=== PATIENT | female | born 1955 | race Two or more races ===

== ENCOUNTER 2019-01-13 10:21 | Emergency (ER) | payer OTHER ==
[~2019-01-13] VITALS: Ht 154.9 cm; Wt 102.1 kg
[2019-01-13 12:07] VITALS: BP 161/95
[2019-01-13] MEDS ORDERED: KETOROLAC TROMETH 60MG/2ML VIAL IM ONE (12:30)
== END 2019-01-13 13:33 | disposition home or self-care (01) ==
LOC: ER 10:21
DX: M25.561 Pain in right knee (principal); M25.562 Pain in left knee; E11.9 Type 2 diabetes mellitus without complications; Z76.0 Encounter for issue of repeat prescription; Z90.49 Acquired absence of other specified parts of digestive tract; Z90.710 Acquired absence of both cervix and uterus; Z88.1 Allergy status to other antibiotic agents
CPT/HCPCS: 93005; 96372; 99283; J1885

== ENCOUNTER 2020-09-16 14:34 | Observation (INO) | payer MEDICAID, OTHER ==
[~2020-09-16] VITALS: Ht 154.9 cm; Wt 130.0 kg
[~2020-09-16 14:34] MED LIST: CELE100C82 PO; CYCL5TAB PO; DULO20CA PO; GABA100C9 PO; HYDR-4833 PO; LUBI8CAP4 PO; METF-370 PO; PANT40TA2 PO
[2020-09-16 15:20] LABS: Basophils # (auto) 0 10 ^3/uL (0-0.2); Basophils % (auto) 0.5 % (0.0-2.0); Eosinophils # (auto) 0 10 ^3/uL (0-0.8); Hemoglobin 14.1 g/dL (12.2-16.2); Lymphocytes # (auto) 0.9 10 ^3/uL (0.4-5.4); Lymphocytes % (auto) 28.5 % (10.0-50.0); Mean Corpuscular Hemoglobin 31.1 pg (28.0-32.0); Mean Corpuscular Hgb Conc. 35.3 g/dL (32.0-36.0); Mean Corpuscular Volume 88.3 fL (80.0-100.0); Monocytes # (auto) 0.3 10 ^3/uL (0-1.3); Monocytes % (auto) 8.8 % (0.0-12.0); Neutrophils % (auto) 62.2 % (37.0-80.0); Nucleated Red Blood Cells % 0.1 %; Platelet Count (auto) 211 10^3/uL (140-450); Red Blood Cells 4.54 10^6/uL (4.0-5.20); Red Cell Distribution Width 13.8 % (11.8-14.3); White Blood Cell 3.3 10^3/uL (4.4-10.8)
[2020-09-16 15:35] LABS: Albumin 3.8 g/dL (3.4-5.0); Potassium 3.2 mmol/L (3.5-5.1)
[2020-09-16 15:42] LABS: BUN/Creatinine Ratio 14.5; Bilirubin, Total 0.5 mg/dL (0.2-1.0); Total Protein 8.1 g/dL (6.4-8.2)
[2020-09-16] MEDS ORDERED: ONDANSETRON HCL 4 MG/2 ML VIAL IV ONE (16:30)
[2020-09-16] MEDS ORDERED: SODIUM CHLORIDE 0.9% 1,000 ML IV ONE (16:30)
[2020-09-16] MEDS ORDERED: MORPHINE SULFATE 4 MG/ML SYR/VIAL IV ONE (16:30)
[2020-09-16] MEDS ORDERED: PROMETHAZINE HCL 25 MG/ML 1ML IV ONE (19:15)
[2020-09-16 22:27] LABS: Amylase 33 U/L (25-115)
[2020-09-17 00:05] LABS: Urine Bacteria MANY /hpf (None Seen); Urine Blood Negative /uL (Negative); Urine Mucus FEW (None Seen); Urine Specific Gravity 1.026 (1.001-1.035); Urine WBC 2 /hpf (0 - 5)
[2020-09-17] MEDS ORDERED: ONDANSETRON HCL 4 MG/2 ML VIAL IV ONE (00:15)
[2020-09-17] MEDS ORDERED: MORPHINE SULFATE 4 MG/ML SYR/VIAL IV ONE (00:15)
[2020-09-17] MEDS ORDERED: SODIUM CHLORIDE 0.9% 1,000 ML IV ONE (06:45)
[2020-09-17 07:55] LABS: Basophils # (auto) 0 10 ^3/uL (0-0.2); Basophils % (auto) 0.3 % (0.0-2.0); Eosinophils # (auto) 0 10 ^3/uL (0-0.8); Hematocrit 38.3 % (36.0-46.0); Hemoglobin 13.4 g/dL (12.2-16.2); Lymphocytes # (auto) 1.2 10 ^3/uL (0.4-5.4); Lymphocytes % (auto) 46.4 % (10.0-50.0); Mean Corpuscular Hemoglobin 30.7 pg (28.0-32.0); Mean Corpuscular Volume 87.9 fL (80.0-100.0); Monocytes # (auto) 0.2 10 ^3/uL (0-1.3); Monocytes % (auto) 9.5 % (0.0-12.0); Neutrophils # (auto) 1.1 10 ^3/uL (1.6-8.6); Neutrophils % (auto) 43.8 % (37.0-80.0); Nucleated Red Blood Cells % 0.1 %; Platelet Count (auto) 180 10^3/uL (140-450); Red Blood Cells 4.36 10^6/uL (4.0-5.20); Red Cell Distribution Width 13.5 % (11.8-14.3); White Blood Cell 2.5 10^3/uL (4.4-10.8)
[2020-09-17 08:16] LABS: Calcium 8.4 mg/dL (8.5-10.1); Potassium 3.1 mmol/L (3.5-5.1)
[2020-09-17 08:28] LABS: Albumin 3.7 g/dL (3.4-5.0); BUN/Creatinine Ratio 18.1; Bilirubin, Total 0.5 mg/dL (0.2-1.0); INR 1.02 (0.9-1.15); Total Protein 7.8 g/dL (6.4-8.2)
[2020-09-17] MEDS: levoFLOXacin 500MG 100 ML IV SCH (10:00)
[2020-09-17] MEDS: PANTOPRAZOLE 40 MG/10 ML VIAL INJ IV SCH ×2 (10:00→22:00)
[2020-09-17] MEDS ORDERED: ALBUTEROL SULF HFA 90MCG INH 200DOSE IN SCH (14:00)
[2020-09-17] MEDS ORDERED: ONDANSETRON HCL 4 MG/2 ML VIAL ONE (16:45)
[2020-09-17] MEDS ORDERED: ONDANSETRON HCL 4 MG/2 ML VIAL IV PRN (16:45)
[2020-09-18] VITALS: BP 100/56
[2020-09-18 07:40] LABS: Basophils # (auto) 0 10 ^3/uL (0-0.2); Eosinophils # (auto) 0 10 ^3/uL (0-0.8); Hemoglobin 11.7 g/dL (12.2-16.2); Lymphocytes # (auto) 0.8 10 ^3/uL (0.4-5.4); Lymphocytes % (auto) 44.9 % (10.0-50.0); Monocytes # (auto) 0.2 10 ^3/uL (0-1.3); Neutrophils # (auto) 0.8 10 ^3/uL (1.6-8.6)
[2020-09-18 07:42] LABS: Basophils % (auto) 0.2 % (0.0-2.0); Hematocrit 33.5 % (36.0-46.0); Mean Corpuscular Hemoglobin 30.6 pg (28.0-32.0); Mean Corpuscular Volume 87.5 fL (80.0-100.0); Monocytes % (auto) 9.6 % (0.0-12.0); Neutrophils % (auto) 45.3 % (37.0-80.0); Platelet Count (auto) 160 10^3/uL (140-450); Red Blood Cells 3.83 10^6/uL (4.0-5.20); Red Cell Distribution Width 13.7 % (11.8-14.3)
[2020-09-18 07:52] LABS: White Blood Cell 1.7 10^3/uL (4.4-10.8)
[2020-09-18 08:00] VITALS: BP 105/52
[2020-09-18 08:09] LABS: BUN/Creatinine Ratio 12.2; Calcium 8.1 mg/dL (8.5-10.1)
[2020-09-18 08:11] LABS: Bilirubin, Total 0.5 mg/dL (0.2-1.0); Total Protein 6.6 g/dL (6.4-8.2)
[2020-09-18 08:57] LABS: Potassium 2.8 mmol/L (3.5-5.1)
[2020-09-18] MEDS ORDERED: POTASSIUM CHLORIDE 40 MEQ, LIDOCAINE 1% (LOCAL ANESTH.) 4 ML in SODIUM CHL 0.9% 250 ML IV ONE (09:30)
[2020-09-18] MEDS ORDERED: POTASSIUM CHL 20 Meq TABLET PO ONE (10:00)
[2020-09-18] MEDS: PANTOPRAZOLE 40 MG/10 ML VIAL INJ IV SCH ×2 (10:00→22:51)
[2020-09-18] MEDS: levoFLOXacin 500MG 100 ML IV SCH (10:53)
[2020-09-18 16:00] VITALS: BP 109/69
[2020-09-18] MEDS: ALBUTEROL SULF HFA 90MCG INH 200DOSE IN PRN (16:03)
[2020-09-18 18:37] LABS: Basophils # (auto) 0 10 ^3/uL (0-0.2); Eosinophils # (auto) 0 10 ^3/uL (0-0.8); Neutrophils # (auto) 0.8 10 ^3/uL (1.6-8.6); Platelet Count (auto) 150 10^3/uL (140-450); Red Cell Distribution Width 13.4 % (11.8-14.3)
[2020-09-18 18:40] LABS: Basophils % (auto) 0.1 % (0.0-2.0); Hematocrit 33.2 % (36.0-46.0); Hemoglobin 11.8 g/dL (12.2-16.2); Lymphocytes # (auto) 0.6 10 ^3/uL (0.4-5.4); Lymphocytes % (auto) 40.2 % (10.0-50.0); Mean Corpuscular Hemoglobin 31.4 pg (28.0-32.0); Mean Corpuscular Hgb Conc. 35.7 g/dL (32.0-36.0); Mean Corpuscular Volume 87.9 fL (80.0-100.0); Monocytes # (auto) 0.1 10 ^3/uL (0-1.3); Monocytes % (auto) 9.1 % (0.0-12.0); Neutrophils % (auto) 50.6 % (37.0-80.0); Nucleated Red Blood Cells % 0.2 %; Red Blood Cells 3.77 10^6/uL (4.0-5.20)
[2020-09-18 19:33] LABS: White Blood Cell 1.6 10^3/uL (4.4-10.8)
[2020-09-18] MEDS: HYDROcodone-ACET 10/325MG TAB PO PRN (21:26)
[2020-09-19] VITALS: BP_SYST 96; BP_SYST 98; BP_DIAS 58; BP_DIAS 61
[2020-09-19] MEDS: ALBUTEROL SULF HFA 90MCG INH 200DOSE IN PRN (06:38)
[2020-09-19 06:56] LABS: Basophils # (auto) 0 10 ^3/uL (0-0.2); Basophils % (auto) 0.3 % (0.0-2.0); Eosinophils # (auto) 0 10 ^3/uL (0-0.8); Eosinophils % (auto) 0.1 % (0.0-7.0); Lymphocytes # (auto) 0.6 10 ^3/uL (0.4-5.4); Monocytes # (auto) 0.1 10 ^3/uL (0-1.3); Neutrophils # (auto) 1.2 10 ^3/uL (1.6-8.6)
[2020-09-19 06:59] LABS: Hematocrit 33.4 % (36.0-46.0); Hemoglobin 11.6 g/dL (12.2-16.2); Lymphocytes % (auto) 31.4 % (10.0-50.0); Mean Corpuscular Hemoglobin 30.4 pg (28.0-32.0); Mean Corpuscular Hgb Conc. 34.7 g/dL (32.0-36.0); Mean Corpuscular Volume 87.6 fL (80.0-100.0); Monocytes % (auto) 6.1 % (0.0-12.0); Neutrophils % (auto) 62.1 % (37.0-80.0); Nucleated Red Blood Cells % 0.1 %; Platelet Count (auto) 167 10^3/uL (140-450); Red Blood Cells 3.81 10^6/uL (4.0-5.20); Red Cell Distribution Width 13.7 % (11.8-14.3)
[2020-09-19 07:13] LABS: BUN/Creatinine Ratio 9.8; Calcium 8.4 mg/dL (8.5-10.1); Magnesium 1.2 mg/dL (1.6-2.6); Potassium 3.2 mmol/L (3.5-5.1)
[2020-09-19 08:00] VITALS: BP 115/53
[2020-09-19] MEDS: PANTOPRAZOLE 40 MG/10 ML VIAL INJ IV SCH (10:00)
[2020-09-19] MEDS: levoFLOXacin 500MG 100 ML IV SCH (11:04)
[2020-09-19] MEDS ORDERED: POTASSIUM CHL 20 Meq TABLET PO ONE (13:30)
[2020-09-19] MEDS: HYDROcodone-ACET 10/325MG TAB PO PRN (14:28)
[2020-09-19 16:00] VITALS: BP 96/66
[2020-09-19] MEDS ORDERED: ONDA-144 PO (19:19)
[2020-09-19] MEDS ORDERED: PANT40TA2 PO (19:19)
[2020-09-19 19:27] VITALS: BP 122/70
[2020-09-19 20:45] VITALS: BP 122/70
== END 2020-09-19 21:00 | disposition home or self-care (01) ==
LOC: ER 14:34 → EDBD 14:34 → OVERFLOW 09-17 06:43 → WEST WING 09-17 23:33
PROVIDERS: ADMIT Internal Medicine; ATTEND Internal Medicine
DX: U07.1 COVID-19 (principal); J12.89 Other viral pneumonia; K92.2 Gastrointestinal hemorrhage, unspecified; N39.0 Urinary tract infection, site not specified; E86.0 Dehydration; E66.01 Morbid (severe) obesity due to excess calories; K21.9 Gastro-esophageal reflux disease without esophagitis; F41.9 Anxiety disorder, unspecified; G89.29 Other chronic pain; M54.5 Low back pain; E11.9 Type 2 diabetes mellitus without complications; D72.819 Decreased white blood cell count, unspecified; M79.7 Fibromyalgia; R11.2 Nausea with vomiting, unspecified; Z90.710 Acquired absence of both cervix and uterus; Z90.49 Acquired absence of other specified parts of digestive tract; Z96.619 Presence of unspecified artificial shoulder joint; Z98.51 Tubal ligation status; Z79.84 Long term (current) use of oral hypoglycemic drugs; Z79.891 Long term (current) use of opiate analgesic; Z79.899 Other long term (current) drug therapy; Z88.0 Allergy status to penicillin; Z68.42 Body mass index [BMI] 45.0-49.9, adult
CPT/HCPCS: 36415; 74176; 80048; 80053; 81001; 82150; 82962; 83605; 83690; 83735; 84132; 84484; 85025; 85610; 87426; 96361; 96365; 96366; 96375; 96376; 99284; C9113; G0378; J1956; J2001; J2270; J2405; J2550; J3480; J7030; J7050